=== PATIENT | male | born 1950 | race Caucasian/White ===

== ENCOUNTER 2016-12-20 04:03 | Inpatient (IN) | payer OTHER ==
[~2016-12-20] VITALS: Ht 188 cm; Wt 86.4 kg
[2016-12-20] MEDS ORDERED: ASPIRIN 325 MG TAB PO STA (04:39)
[2016-12-20] MEDS ORDERED: ALBUTEROL 0.083% (NEB) 2.5 MG/3 ML AMP HHN STA (04:45)
[2016-12-20] MEDS ORDERED: IPRATROPIUM (NEB) 0.5 MG/2.5 ML AMP HHN ONE (05:00)
[2016-12-20 05:19] LABS: ADD SCAN DIFF NO
[2016-12-20 05:24] LABS: BASOPHILS % 0.7 % (0.0-2.0); EOSINOPHILS # 0.1 10^3/ul (0.0-0.5); HEMATOCRIT 42.1 % (42.0-52.0); HEMOGLOBIN 14.1 g/dl (14.0-18.0); LYMPHOCYTES # 0.9 10^3/ul (0.8-2.9); LYMPHOCYTES % 18.6 % (15.0-51.0); MEAN CORPUSCULAR HEMOGLOBIN 33.7 pg (29.0-33.0); MEAN CORPUSCULAR HGB CONC 33.5 g/dl (32.0-37.0); MEAN CORPUSCULAR VOLUME 100.7 fl (82.0-101.0); MEAN PLATELET VOLUME 10.5 fl (7.4-10.4); MONOCYTE # 0.6 10^3/ul (0.3-0.9); MONOCYTES % 13.1 % (0.0-11.0); NEUTROPHILS % 65.4 % (39.0-77.0); PLATELET COUNT 111 10^3/UL (140-415); RED BLOOD COUNT 4.18 10^6/ul (4.70-6.10); RED CELL DISTRIBUTION WIDTH 12.9 % (11.5-14.5); WHITE BLOOD COUNT 4.6 10^3/ul (4.8-10.8)
--- NOTE | 2016-12-20 06:02 | RADRPT ---
PROCEDURE: XR Chest. CLINICAL INDICATION: Chest Pain. TECHNIQUE: Portable single view of the chest COMPARISON: None. FINDINGS: There is mild cardiomegaly. Slight aortic calcification. Minimally increased interstitial markings . No definite acute infiltrate, pleural effusion, or overt congestive heart failure. Degenerative change of the spine is seen. IMPRESSION: Cardiomegaly and mild interstitial prominence. RPTAT: HLBE Mary Edwards Physician Date Time Electronically viewed and signed by Mary Edwards, Physician on 12/20/2016 06:02 JANETTE/
[2016-12-20 06:13] LABS: CHLORIDE 105 mmol/L (97-110); POTASSIUM 3.9 mmol/L (3.5-5.1); SODIUM 145 mmol/L (135-144)
[2016-12-20 06:16] LABS: CREATININE 0.69 mg/dl (0.61-1.24)
[2016-12-20 06:17] LABS: ANION GAP 17 (8-16); BLOOD UREA NITROGEN 13 mg/dl (7-20); CALCIUM 8.8 mg/dl (8.4-10.2); CARBON DIOXIDE 27 mmol/L (21-31); GLUCOSE 87 mg/dl (70-220)
[2016-12-20 06:24] LABS: B-TYPE NATRIURETIC PEPTIDE 28 PG/ML (0-125)
[2016-12-20 06:32] LABS: INR 0.91; PROTIME 12.2 Sec (12.2-14.2)
[2016-12-20 06:33] LABS: PARTIAL THROMBOPLASTIN TIME 26.9 Sec (25.0-35.0)
[2016-12-20 06:35] LABS: TROPONIN-I < 0.012 ng/ml (0.00-0.12)
[2016-12-20] MEDS ORDERED: predniSONE 20 MG TAB PO ONE (07:00)
[2016-12-20] MEDS ORDERED: PRED20TA PO (07:17)
[2016-12-20] MEDS ORDERED: ALBU18HF INHALATION (07:17)
[2016-12-20] MEDS ORDERED: AZIT500T2 PO (07:17)
--- NOTE | 2016-12-20 07:26 | ERD ---
ER Documentation Chief Complaint Date/Time DATE: 12/20/16 TIME: 07:22 Chief Complaint PT BIB EMS FOR ETOH INTOX C/O CP, SOB, BODYACHES, CONFUSION, FSBS 123 HPI This 66-year-old male was found in public intoxicated. Paramedics were called. They arrived the patient complained of chest pain and shortness of breath. He currently denies body aches and confusion as stated in chief complaint. He states that he has COPD and needs a breathing treatment. Denies fevers and chills. States he has had a cough for a couple of days. History is not completely reliable as the patient is intoxicated currently. ROS All systems reviewed and are negative except as per history of present illness but may be unreliable because of intoxicated state.. Medications Home Meds Active Scripts Azithromycin* (Zithromax* Tri-Kuldip) 500 Mg Tablet, 500 MG PO DAILY for 3 Days, TAB Prov:ERICAMASOUD DO 12/20/16 Prednisone* (Prednisone*) 20 Mg Tab, 40 MG PO DAILY, #4 TAB Prov:ERICAMASOUD DO 12/20/16 Albuterol Sulfate* (Ventolin HFA*) 18 Gm Hfa.aer.ad, 2 PUFF INHALATION Q4H, #1 INHALER Prov:MASOUD MALDONADO 12/20/16 Allergies Allergies: Coded Allergies: No Known Allergy (Unverified , 12/20/16) PMhx/Soc History of Surgery: Yes (ELBOW, "SHOT IN BACK") Hx Neurological Disorder: Yes (SZ) Hx Respiratory Disorders: Yes (COPD) Hx Alcohol Use: Yes (DAILY, LARGE AMOUNTS) Hx Substance Use: No Hx Tobacco Use: Yes Smoking Status: Heavy tobacco smoker Physical Exam Vitals Vital Signs Date Time Temp Pulse Resp B/P Pulse Ox O2 Delivery O2 Flow Rate FiO2 12/20/16 05:53 69 15 138/94 100 Venturi Mask 12/20/16 05:24 61 18 94 21 12/20/16 05:10 Nasal Cannula 3 12/20/16 04:15 97.2 69 18 138/96 93 Physical Exam Const: [] No acute distress Head: Atraumatic Eyes: Normal Conjunctiva ENT: Normal External Ears, Nose and Mouth. Neck: Full range of motion..~ No meningismus. Resp: Pronounced bilateral expiratory wheezing Cardio: Regular rate and rhythm, no murmurs Abd: Soft, non tender, non distended. Normal bowel sounds Skin: No petechiae or rashes Back: No midline or flank tenderness Ext: No cyanosis, or edema Neur: Awake and alert and oriented 3, slurred speech, no focal neurological deficits, 5 out of 5 strength all extremities, able to perform finger to nose cerebellar test, cranial nerves II through XII intact Psych: Normal Mood and Affect Result Diagram: 12/20/16 0500 12/20/16 0530 Results 24 hrs Laboratory Tests Test 12/20/16 05:00 12/20/16 05:30 12/20/16 06:00 White Blood Count 4.610^3/ul Red Blood Count 4.1810^6/ul Hemoglobin 14.1g/dl Hematocrit 42.1% Mean Corpuscular Volume 100.7fl Mean Corpuscular Hemoglobin 33.7pg Mean Corpuscular Hemoglobin Concent 33.5g/dl Red Cell Distribution Width 12.9% Platelet Count 54658^3/UL Mean Platelet Volume 10.5fl Neutrophils % 65.4% Lymphocytes % 18.6% Monocytes % 13.1% Eosinophils % 2.0% Basophils % 0.7% Nucleated Red Blood Cells % 0.0/100WBC Neutrophils # 3.010^3/ul Lymphocytes # 0.910^3/ul Monocytes # 0.610^3/ul Eosinophils # 0.110^3/ul Basophils # 0.010^3/ul Nucleated Red Blood Cells # 0.010^3/ul Sodium Level 145mmol/L Potassium Level 3.9mmol/L Chloride Level 105mmol/L Carbon Dioxide Level 27mmol/L Anion Gap 17 Blood Urea Nitrogen 13mg/dl Creatinine 0.69mg/dl Glucose Level 87mg/dl Calcium Level 8.8mg/dl Troponin I < 0.012ng/ml B-Type Natriuretic Peptide 28PG/ML Prothrombin Time 12.2Sec Prothrombin Time Ratio 1.0 INR International Normalized Ratio 0.91 Activated Partial Thromboplast Time 26.9Sec Current Medications Medications (Trade) Dose Ordered Sig/Felix Route PRN Reason Start Time Stop Time Status Last Admin Dose Admin Aspirin (Aspirin) 325 mg ONCE STAT PO 12/20/16 04:39 12/20/16 04:41 DC 12/20/16 05:11 Albuterol (Proventil 0.083% (Neb)) 10 mg ONCE STAT HHN 12/20/16 04:45 12/20/16 04:46 DC 12/20/16 05:20 Ipratropium [place] (Atrovent 0.02% (Neb)) 1 mg ONCE ONCE HHN 12/20/16 05:00 12/20/16 05:01 DC 12/20/16 05:20 Prednisone (Prednisone) 60 mg ONCE ONCE PO 12/20/16 07:00 12/20/16 07:01 DC 12/20/16 06:39 Procedures/MDM Intoxicated male with COPD exacerbation. Had previously complained of chest pains or cardiac workup was done. Negative troponin no signs of cardiac ischemia and EKG. He was given 10 mg of albuterol 1 mg Atrovent after which he stated that he was breathing better. He still intoxicated and I am going to leave his disposition to the oncoming physician. I am providing albuterol nebulizer as well as 4 more days of prednisone as well as a course of azithromycin for possible bronchitis. Primary care follow-up within the next couple of days. EKG interpretation: Normal sinus rhythm at 65, left axis deviation, normal intervals, no ST or T-wave changes concerning for acute ischemia equipment monitor phototypesetting interpretation: Normal sinus rhythm without arrhythmia Chest x-ray interpretation: I see no acute process, I see no infiltrates, no pneumothorax, no pulmonary edema, no fractures. Departure Diagnosis: Primary Impression: COPD exacerbation Additional Impression: Alcoholic intoxication Condition: Stable Patient Instructions: Copd Flare, Alcohol Intoxication, Alcohol Abuse Referrals: [facility] YOU HAVE RECEIVED A MEDICAL SCREENING EXAM AND THE RESULTS INDICATE THAT YOU DO NOT HAVE A CONDITION THAT REQUIRES URGENT TREATMENT IN THE EMERGENCY DEPARTMENT. FURTHER EVALUATION AND TREATMENT OF YOUR CONDITION CAN WAIT UNTIL YOU ARE SEEN IN YOUR DOCTORS OFFICE WITHIN THE NEXT 1-2 DAYS. IT IS YOUR RESPONSIBILITY TO MAKE AN APPOINTMENT FOR FOLOW-UP CARE. IF YOU HAVE A PRIMARY DOCTOR --you should call your primary doctor and schedule an appointment IF YOU DO NOT HAVE A PRIMARY DOCTOR YOU CAN CALL OUR PHYSICIAN REFERRAL HOTLINE AT IF YOU CAN NOT AFFORD TO SEE A PHYSICIAN YOU CAN CHOSE FROM THE FOLLOWING [facility] CLINICS [facility] [address] [facility]. [facility] [address] [facility] [facility] [address] [facility] [facility] [address] [facility] [address] [facility]. [facility]. [address] Additional Instructions: Call your primary care doctor TOMORROW for an appointment during the next 1-2 days.See the doctor sooner or return here if your condition worsens before your appointment time. MASOUD MALDONADO DO Dec 20, 2016 07:26
[2016-12-20] MEDS ORDERED: LORAZEPAM 2 MG INJ IV ONE (11:00)
[2016-12-20 11:22] LABS: CREATINE KINASE 278 IU/L (23-200)
[2016-12-20 11:33] LABS: CK-MB 2.61 ng/ml (0.0-2.4)
[2016-12-20 11:41] LABS: TROPONIN-I < 0.012 ng/ml (0.00-0.12)
[2016-12-20] MEDS ORDERED: CHLORDIAZEPOXIDE 25 MG CAP PO ONE (14:30)
--- NOTE | 2016-12-20 15:03 | EN ---
Date/Time of Note Date/Time of Note DATE: 12/20/16 TIME: 15:00 ER Progress Note Patient was signed out to me by Dr. Macedo. In brief the patient is a 66-year- old male with alcohol intoxication, with plan to monitor until sober before discharging. The patient otherwise had no apparent medical condition. I spoke with the patient when he was clinically sober, and he expressed that he has been living in [place], and does not know how he will get back to that area. He is currently homeless. He drinks heavily and on a daily basis. He experienced alcohol withdrawal and has had seizures in the past. He states that he would like to detox from alcohol, but when he is attempted to go to detox centers, he is always been intoxicated and so unable to get into any program. Social work was consulted, and found that the [facility]. We attempted to arrange transfer for inpatient detox program, but the [facility] stated the patient would have to go through a [facility] facility first. We attempted to arrange discharge with taxi ride to a [facility] facility for nonemergent follow-up care. However, during the patient's observation in the emergency department, he developed tremulousness and stated that he felt like he was experiencing alcohol withdrawal. He was given 2 doses of benzodiazepines, but was unable to walk due to tremulousness. We will therefore admit the patient for further treatment of alcohol withdrawal and until he can ambulate independently. Diagnosis: Alcohol withdrawal, inability to ambulate Disposition: Admit to inpatient Condition: LOBO Sands MD Dec 20, 2016 15:03
[2016-12-20] MEDS ORDERED: ONDANSETRON 4 MG INJ IV PRN ×2 (16:00→18:30)
[2016-12-20] MEDS ORDERED: ACETAMINOPHEN 325 MG TAB PO PRN (16:00)
[2016-12-20 17:06] LABS: CREATINE KINASE 247 IU/L (23-200)
[2016-12-20 17:13] LABS: CK-MB 2.42 ng/ml (0.0-2.4)
[2016-12-20 17:17] LABS: TROPONIN-I < 0.012 ng/ml (0.00-0.12)
[2016-12-20 18:30] VITALS: TEMP 97.2
[2016-12-20] MEDS ORDERED: morphine 2 MG INJ IV PRN (18:30)
[2016-12-20] MEDS ORDERED: DOCUSATE SODIUM 100 MG CAP PO PRN (18:30)
[2016-12-20] MEDS ORDERED: LORAZEPAM 2 MG INJ IV PRN (18:30)
[2016-12-20] MEDS ORDERED: NACL 0.9% 3 ML SYG IV SCH (18:30)
[2016-12-20] MEDS ORDERED: ALBUTEROL/IPRATROPIUM (NEB) 3 ML AMP HHN PRN (18:30)
--- NOTE | 2016-12-20 19:39 | HP ---
DATE OF ADMISSION: 12/20/2016 CHIEF COMPLAINT: Inability to walk. HISTORY OF PRESENT ILLNESS: The patient is a 66-year-old male with a history of alcohol abuse. The patient typically goes to the [facility]. The patient is a daily drinker and last drink was reportedly tod ay. The patient states that he could not ambulate. He has never been to [facility] in the past. He is a poor historian. He also states that at times he hallucinates and has alcohol withdr awal seizures. The patient is being admitted for alcohol withdrawal. PAST MEDICAL HISTORY: COPD secondary to smoking, alcoholism with alcohol-related seizures. PAST SURGICAL HISTORY: He states he had an elbow surgery. HOME MEDICATIONS: 1. Prednisone. 2. Azithromycin. 3. Albuterol. ALLERGIES: NO KNOWN DRUG ALLERGIES. FAMILY HISTORY: Denies. SOCIAL HISTORY: The patient is a daily drinker, has history of alcohol abuse. He has tried alcohol rehab in the past. He is a heavy smoker. He states that he smokes 5 cigarettes a day. Denies any drug use. REVIEW OF SYSTEMS: A 12-point review of systems difficult to obtain secondary to the patient's poor mentation. PHYSICAL EXAMINATION: VITAL SIGNS: Temperature is 97.2, pulse is 62, respiratory rate 17, BP is 121/79, saturation 99% ro om air. GENERAL: Alert, but not fully oriented. HEENT: Normocephalic, atraumatic. LUNGS: Clear to auscultation. CARDIOVASCULAR: Regular rate and rhythm. ABDOMEN: Nondistended, nontender, soft. EXTREMITIES: No clubbing, cyanosis, edema. LABORATORY TESTS: White count 4.6, hemoglobin is 14.1, platelets 111. Chemistry: Sodium is 145, a nion gap 17. Creatinine kinase is 278. Troponin is normal. BNP is 28. INR is 0.91. DIAGNOSTICS: Chest x-ray shows cardiomegaly, mild interstitial prominence. ASSESSMENT AND PLAN: 1. Alcohol withdrawal with difficulty ambulating. The patient will be admitted for alcohol withdra wal issues. Will give banana bag, Librium, Ativan. Will get a PT evaluation as well as a social wo rker evaluation. 2. Chronic obstructive pulmonary disease. We will give DuoNeb as needed. 3. History of alcohol abuse. The patient is a heavy drinker and been drinking for many years now. The patient's last drink was reportedly today. Will get a public health social worker for further detox programs . 4. Tobacco abuse. The patient is a daily smoker and has chronic obstructive pulmonary disease as a result. 5. Seizures, likely secondary to alcohol withdrawal. Give Keppra 500 mg q.12h. 6. Prophylaxis. Sequential compression devices. Dictated By: KASH BOYD MD BS/NTS Conf#: [id number] DID#: [id number]
[2016-12-20 20:38] VITALS: PULSE 67
[2016-12-20] MEDS ORDERED: PHEN300C2 PO (20:47)
[2016-12-20 21:27] VITALS: BP 128/68; RESP 20
[2016-12-20 22:57] VITALS: Ht 188 cm; Wt 86.4 kg
[2016-12-20] MEDS: CHLORDIAZEPOXIDE 25 MG CAP PO SCH (23:22)
[2016-12-21] VITALS (8 sets, daily range): BP systolic 110–139; BP diastolic 61–69; PULSE 49–67; RESP 20
[2016-12-21] MEDS: LEVETIRACETAM 500 MG (PMX) 100 ML IVPB SCH ×2 (01:42→09:25)
[2016-12-21] MEDS ORDERED: PANTOPRAZOLE (EC) 40 MG TAB PO SCH (06:00)
[2016-12-21 07:59] LABS: ADD SCAN DIFF NO
[2016-12-21 08:05] LABS: BASOPHILS % 0.6 % (0.0-2.0); EOSINOPHILS % 0.8 % (0.0-7.0); HEMATOCRIT 40.2 % (42.0-52.0); HEMOGLOBIN 13.3 g/dl (14.0-18.0); LYMPHOCYTES % 19.8 % (15.0-51.0); MEAN CORPUSCULAR HEMOGLOBIN 33.6 pg (29.0-33.0); MEAN CORPUSCULAR HGB CONC 33.1 g/dl (32.0-37.0); MEAN CORPUSCULAR VOLUME 101.5 fl (82.0-101.0); MEAN PLATELET VOLUME 10.9 fl (7.4-10.4); MONOCYTE # 0.6 10^3/ul (0.3-0.9); MONOCYTES % 12.7 % (0.0-11.0); NEUTROPHIL # 3.2 10^3/ul (1.6-7.5); NEUTROPHILS % 65.9 % (39.0-77.0); PLATELET COUNT 106 10^3/UL (140-415); RED BLOOD COUNT 3.96 10^6/ul (4.70-6.10); RED CELL DISTRIBUTION WIDTH 12.5 % (11.5-14.5); WHITE BLOOD COUNT 4.8 10^3/ul (4.8-10.8)
[2016-12-21 08:30] LABS: ALBUMIN 3.8 g/dl (3.3-4.9); ALBUMIN/GLOBULIN RATIO 1.08; CALCIUM 9.6 mg/dl (8.4-10.2); CREATININE 0.79 mg/dl (0.61-1.24); MAGNESIUM 1.7 mg/dl (1.7-2.5); PHOSPHORUS 3.7 mg/dl (2.5-4.9); POTASSIUM 4.2 mmol/L (3.5-5.1); TOTAL PROTEIN 7.3 g/dl (6.1-8.1)
[2016-12-21] MEDS: CHLORDIAZEPOXIDE 25 MG CAP PO SCH ×2 (08:47→12:39)
[2016-12-21] MEDS ORDERED: MULTIVITAMINS 10 ML, THIAMINE 100 MG, FOLIC ACID 1 MG in SOD CHLORIDE 0.9% 1,000 ML IVPB SCH (09:00)
[2016-12-21 10:44] LABS: PLATELET ESTIMATE PLT APPEAR DECREASED
[2016-12-21] MEDS: BUPROPION (SR) 100 MG TAB PO SCH ×2 (12:00→13:24)
--- NOTE | 2016-12-21 12:33 | PN ---
Date/Time of Note Date/Time of Note DATE: 12/21/16 TIME: 12:30 Assessment/Plan VTE Prophylaxis VTE Prophylaxis Intervention: ambulation Lines/Catheters IV [facility]from [facility] Sal[place] Lock Urinary Cath still in place: No Assessment/Plan Chief Complaint/Hosp Course Assessment 1. History of heavy alcohol consumption now abstinent for the past 3 days 2. Decreased mobility likely secondary to above 3. No focal motor neurological deficits on clinical examination patient may have peripheral neuropathy. 4. History of tobacco use probable underlying COPD Plan 1. Continue multivitamins thiamine and folic acid 2. Physical therapy evaluation and ambulate 3. Continue Librium taper 4. financial services counselor and lining caser evaluation Disposition Possible transfer to the [place] where he receives his primary care Anticipated discharge next 24 hours Transferred to [facility] Problems: Subjective 24 Hr Interval Summary Free Text/Dictation Patient is awake alert oriented this morning comfortable at rest No evidence of withdrawals Complaining of pain in his lower extremities with difficulty ambulating Exam/Review of Systems Vital Signs Vitals Vital Signs Date Time Temp Pulse Resp B/P Pulse Ox O2 Delivery O2 Flow Rate FiO2 12/21/16 12:12 61 12/21/16 11:42 97.5 20 110/61 93 12/20/16 18:30 Room Air 12/20/16 05:24 21 12/20/16 05:10 3 Intake and Output 12/20/16 12/20/16 12/21/16 15:00 23:00 07:00 Intake Total 600 ml Output Total 200 ml Balance 400 ml Exam GENERAL: Elderly appearing gentleman comfortable at rest no acute distress VITAL SIGNS: per chart NECK: Supple. No JVD or lymphadenopathy. CARDIAC EXAM: S1, S2. No added sounds or murmurs. CHEST: clear bilaterally, No added sounds, rales or wheezes ABDOMEN: Soft, nontender. No guarding or rebound. EXTREMITIES: No cyanosis, clubbing or edema. NEUROLOGIC: Generalized weakness. No focal deficits. Results Result Diagram: 12/21/16 0715 12/21/16 0715 Results 24 hrs Laboratory Tests Test 12/20/16 16:39 12/21/16 07:15 Creatine Kinase 247 H Creatine Kinase Index 1.0 Creatinine Kinase MB (Mass) 2.42 H Troponin I < 0.012 White Blood Count 4.8 Red Blood Count 3.96 L Hemoglobin 13.3 L Hematocrit 40.2 L Mean Corpuscular Volume 101.5 H Mean Corpuscular Hemoglobin 33.6 H Mean Corpuscular Hemoglobin Concent 33.1 Red Cell Distribution Width 12.5 Platelet Count 106 L Mean Platelet Volume 10.9 H Neutrophils % 65.9 Lymphocytes % 19.8 Monocytes % 12.7 H Eosinophils % 0.8 Basophils % 0.6 Nucleated Red Blood Cells % 0.0 Neutrophils # 3.2 Lymphocytes # 1.0 Monocytes # 0.6 Eosinophils # 0.0 Basophils # 0.0 Nucleated Red Blood Cells # 0.0 Differential Comment AUTO w/SCAN Platelet Estimate PLT APPEAR DECREASED Sodium Level 139 Potassium Level 4.2 Chloride Level 105 Carbon Dioxide Level 30 Anion Gap 8 # Blood Urea Nitrogen 16 Creatinine 0.79 Glucose Level 86 Hemoglobin A1c 5.1 Calcium Level 9.6 Phosphorus Level 3.7 Magnesium Level 1.7 Total Bilirubin 1.0 Direct Bilirubin 0.00 Indirect Bilirubin 1.0 Aspartate Amino Transf (AST/SGOT) 89 H Alanine Aminotransferase (ALT/SGPT) 66 Alkaline Phosphatase 51 Total Protein 7.3 Albumin 3.8 Globulin 3.50 H Albumin/Globulin Ratio 1.08 Medications Medications Current Medications Ondansetron HCl (Zofran Inj) 4 mg Q6H PRN IV NAUSEA AND/OR VOMITING; Start at 18:30 Morphine Sulfate (morphine) 2 mg Q4H PRN IV SEVERE PAIN LEVEL 7-10 Last administered on 12/21/16 07:48; Admin Dose 2 MG; Start 12/20/16 at 18:30 Docusate Sodium (Colace) 100 mg Q12H PRN PO CONSTIPATION; Start 12/20/16 at 18: 30 Pantoprazole (Protonix Tab) 40 mg DAILY@06 PO Last administered on 12/21/16 05: 20; Admin Dose 40 MG; Start 12/21/16 at 06:00 Lorazepam 1 mg 1 mg Q4 PRN IV AGITATION/ANXIETY; Start 12/20/16 at 18:30 Multivitamins/ Thiamine HCl/ Folic Acid/Sodium Chloride (Mvi Adult/ Vitamin B1/ Folic Acid/NS) 1,011.2 ml @ 125 mls/ hr DAILY@09 IVPB Last administered on 12/21 09:16; Admin Dose 125 MLS/HR; Start 12/21/16 at 09:00 Chlordiazepoxide 25 mg 25 mg TID PO Last administered on 12/21/16 08:47; Admin Dose 25 MG; Start 12/20/16 at 21:00 Levetiracetam (Keppra 500 Mg/ 100ml (Pmx)) 100 ml @ 400 mls/hr Q12 IVPB Last administered on 12/21/16 09:25; Admin Dose 400 MLS/HR; Start 12/20/16 at 21:00 Bupropion HCl (Wellbutrin Sr) 200 mg BID PO ; Start 12/21/16 at 12:00 JULISSA CM MD, [facility] December 21, 2016 12:33
== END 2016-12-21 13:45 | disposition left against medical advice (07) | DRG 894 ==
LOC: E/R 04:03 → MS4 16:01
PROVIDERS: ADMIT Internal Medicine; ATTEND Internal Medicine
DX: F10.239 Alcohol dependence with withdrawal, unspecified (principal); J44.9 Chronic obstructive pulmonary disease, unspecified; F17.210 Nicotine dependence, cigarettes, uncomplicated; Z59.0 Homelessness
CPT/HCPCS: 36415; 71010; 80048; 80053; 82550; 82553; 83036; 83735; 83880; 84100; 84484; 85025; 85610; 85730; 93005; 94644; 96374; J1953; J2060; J2270; J3411; J7030; J7512